=== PATIENT | male | born 1980 | race Caucasian/White ===

== ENCOUNTER 2024-05-07 09:27 | Outpatient (CLI) | payer OTHER, SELFPAY | END 2024-05-07 09:28 | disposition home or self-care (01) | LOC: FRMREF 09:28 | PROVIDERS: PCP Family Medicine; Visit Provider Nurse Practitioner Family | DX: Z13.6 Encounter for screening for cardiovascular disorders (principal) | CPT/HCPCS: 80061 ==

== ENCOUNTER 2024-05-11 16:28 | Outpatient (CLI) | payer OTHER, SELFPAY ==
--- NOTE | 2024-05-11 16:45 | CRLHL7_ITS ---
For Patients: As a result of the Century Cures Act, medical imaging exams and procedure reports are released immediately into your electronic medical record. You may view this report before your referring provider. If you have questions, please contact your health care provider. INDICATION: Cough TECHNIQUE: Volumetric helical scanning of the thorax was performed without IV contrast material. Coronal and sagittal reconstructions were obtained. COMPARISON: None FINDINGS: The lungs are clear. There is no significant airway abnormality. No pleural effusion is demonstrated. There is no mediastinal or hilar lymphadenopathy. The heart size is normal. Images of the upper abdomen are unremarkable. IMPRESSION: Negative chest CT Please note that all CT scans at this facility use dose modulation, iterative reconstruction, and/or weight-based dosing when appropriate to reduce radiation dose to as low as reasonably achievable. Dictated by Dominik Littlejohn MD @ 05/12/2024 5:49:57 AM (Electronically Signed)
== END 2024-05-11 16:29 | disposition home or self-care (01) ==
PROVIDERS: PCP Family Medicine; Visit Provider Nurse Practitioner Family
DX: R05.9 Cough, unspecified (principal)
CPT/HCPCS: 71250

== ENCOUNTER 2024-07-25 20:16 | Emergency (ER) | payer OTHER, SELFPAY ==
--- OUTSIDE RECORDS SUMMARY | 2024-07-25 20:18 | XMS_ITS | Clinical Summary ---
Author Organization [facility] Address [address] [place] [address] Care Team Providers Care Fuse Assembler Name Role Phone Pcp, No Primary Care Provider Unavailabl e Allergies No known active allergies Medications No known medications Active Problems Problem Noted Date Diagnosed Date ANKLE SPRAIN 04/01/2005 ACUTE SUPPURATIVE OTITIS MEDIA 07/07/2000 Immunizations Immunization Administration Dates Next Due Td (Age >=7 Years) 08/27/1997 Family History Medical History Relation Name Comments Genetic Other uncontributory Relation Name Status Comments Other Social History Tobacco Use Types Packs/Day Years Used Date Smoking Tobacco: Former Smokeless Tobacco: Never Tobacco Cessation:Counseling Given: No Comments:quit 3-4 years ago Alcohol Use Standard Drinks/Week Comments Yes 0 (1 standard drink = 0.6 oz pur e alcohol) occ weekends Sex and Gender Information Value Date Recorded Sex Assigned at Not on file 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 Gender Identity Not on file Sexual Orientation Not on file Obstetrics History Last Filed Vital Signs Vital Sign Reading Time Taken Comments Blood Pressure 120/73 01/02/2013 2:18 PM CDT Pulse 71 01/02/2013 2:18 PM CDT Temperature 36.7 C (98.1 F) 01/02/2013 2:18 PM CDT Respiratory Rate - - Oxygen Saturation 99% 01/02/2013 2:18 PM CDT Inhaled Oxygen Concentration - - Weight 95.3 kg (210 lb 3.2 oz) 01/02/2013 2:18 P M CDT Height 188.5 cm (6' 2.21) 01/02/2013 2:18 PM CD T Body Mass Index 26.83 01/02/2013 2:18 PM CDT Plan of Treatment Health Maintenance Due Date Last Done Comments Tdap 1989 Depression screening for age 12+ 1990 HIV for age 15-65 1993 BMI (ht and wt on same day) for age 18+ 1996 Hepatitis C screening for ag e 18-79 1996 Tetanus booster 08/28/2007 08/27/1997 Colonoscopy through age 75 09/03/2023 Lipids for age 45-75 09/03/2023 06/22/2003, 06/22/2003 COVID-19 vaccine series (2023- season) 2023 Influenza Vaccine (Season Ended) 2024 Pneumococcal series for age 6-49 Aged Out No longer eligible b ased on patient's age to complete this topic Procedures Procedure Name Priority Date/Time Associated Diagnosis Comments CHOLESTEROL,TOTAL Routine 06/22/2003 3:4 8 PM DREDGE PIPE INSTALLER from Last 3 Months or Most Recently Relevant to Health Maintenance Results * CHOLESTEROL,TOTAL (06/22/2003 3:48 PM DREDGE PIPE INSTALLER) CHOLESTEROL,TOT AL 134 110 - 199 mg/dL 06/22/2003 3:48 PM DREDGE PIPE INSTALLER Narrative 10/02/2003 4:43 AM CDT Ordered by an unspecified provider. us Other Clinical Staff CHEMISTRY Final Resul t from Last 3 Months or Most Recently Relevant to Health Maintenance Insurance [employer] [id number] WORKERS [employer] * Guarantor: [employer] Account Type Relation to Patient Date of Phone Billing Address [facility] [phone] (Home) [phone] (Work) [facility] [id number] [place] [address] Care Teams Fuse Assembler Relationship Specialty Start Date End Date Pcp, No . PCP - General 10/28/11
[2024-07-25 20:19] VITALS: BP 137/95; PULSE 78; RESP 20; TEMP 36.4; O2SAT 99; BMI 29.7
--- NOTE | 2024-07-25 20:39 | CRLHL7_ITS ---
For Patients: As a result of the Century Cures Act, medical imaging exams and procedure reports are released immediately into your electronic medical record. You may view this report before your referring provider. If you have questions, please contact your health care provider. INDICATION: Right-sided abdominal pain. TECHNIQUE: CT abdomen and pelvis without contrast. COMPARISON: None. FINDINGS: Lower chest: Unremarkable. Liver: Normal in size and attenuation. Gallbladder and bile ducts: No stones or inflammation. No biliary ductal dilatation. Spleen: Normal in size. Adrenal glands: Normal in size. No nodules. Pancreas: No inflammation. Kidneys: 2.5 mm calculus near the right ureterovesical junction. Mild right hydroureteronephrosis. No stones or hydronephrosis in the left kidney. GI tract: Normal in caliber. No evidence of obstruction. Status post appendectomy. Lymph nodes: No lymphadenopathy. Vasculature: Abdominal aorta is normal in caliber. Abdominal wall/Omentum/Peritoneum: Tiny fat containing umbilical hernia. No free air or significant free fluid. Pelvis: Unremarkable. Bones: Unremarkable for age. IMPRESSION: 2.5 mm right ureterovesical junction calculus with mild upstream hydroureteronephrosis. Please note that all CT scans at this facility use dose modulation, iterative reconstruction, and/or weight-based dosing when appropriate to reduce radiation dose to as low as reasonably achievable. Dictated by Enzo Bowers MD @ 07/25/2024 9:09:14 PM (Electronically Signed)
--- OUTSIDE RECORDS SUMMARY | 2024-07-25 20:43 | XMS_ITS | Clinical Summary ---
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 us Other Clinical Staff CHEMISTRY Final Resul t from Last 3 Months or Most Recently Relevant to Health Maintenance Insurance [employer] [id number] [employer] * Guarantor: [employer] Account Type Relation to Patient Date of Phone Billing Address [facility] [place] [phone] (Home) [phone] (Work) [facility] [id number] [place] [address] Care Teams Jewel Diameter Gauger Relationship Specialty Start Date End Date Pcp, No . PCP - General 10/28/11
[2024-07-25] MEDS: HYDROmorphone 0.5 mg/0.5 ml inj IVP ×2 (20:51→22:33)
[2024-07-25] MEDS: ONDANSETRON 2 MG/ML inj 4 MG IVP (20:52)
[2024-07-25] MEDS: 0.9 % SODIUM CHLORIDE 1000 ml 1,000 ML IV (20:52)
[2024-07-25] MEDS: KETOROLAC 30 MG/ML inj IVP (20:52)
[2024-07-25 21:16] LABS: Chloride* 104 mmol/L (96-114); Potassium* 3.3 mmol/L (3.6-5.1); Sodium* 139 mmol/L (135-149)
[2024-07-25 21:17] LABS: Basophils Absolute Auto 0.04 K/uL (0.00-0.30); Basophils Percent Auto 0.7 % (0.0-3.0); Eosinophils Absolute Auto 0.06 K/uL (0.00-0.50); Hematocrit 39.5 % (37.0-53.0); Hemoglobin* 14.5 gm/dL (13.5-17.5); Immature Granulocytes Abs Auto 0.03 K/uL (0.00-0.30); Immature Granulocytes Pct Auto 0.5 %; Lymphocytes Absolute Auto 1.99 K/uL (0.90-2.90); Lymphocytes Percent Auto 34.5 % (20-44); Mean Corpuscular HGB Conc 37 gm/dL (32-36); Mean Corpuscular Hemoglobin 31 pg (26-34); Mean Corpuscular Volume 85 fL (80-100); Monocytes Percent Auto 7.8 % (0.0-11.0); Neutrophils Absolute Auto 3.19 K/uL (1.7-7.0); Neutrophils Percent Auto 55.5 % (42.0-72.0); Platelet Count* 259 K/uL (140-440); RDW Coefficient of Variation % 11.5 % (11.5-15.5); Red Blood Count 4.63 m/uL (4.30-5.90); Slide Review Reflex No; White Blood Count* 5.76 K/uL (4.50-11.00)
[2024-07-25 21:20] LABS: Anion Gap 12 mEq/L (7-15); Blood Urea Nitrogen* 26 mg/dL (5-24); Calcium* 9.3 mg/dL (8.4-10.6); Carbon Dioxide* 23 mmol/L (20-32); Creatinine* 1.1 mg/dL (0.5-1.5); Est. Creatinine Clearance* 95.84; Estimated Glomerular Filt Rate 84 ml/min; Glucose* 107 mg/dL (60-115)
[2024-07-25 21:23] LABS: C Reactive Protein* < 0.5 mg/dL (0.5-1.0)
[2024-07-25 21:47] LABS: Appearance Urine Clear (Clear); Bilirubin Urine Negative (Negative); Blood Urine Negative (Negative); Color Urine Yellow (Yellow); Glucose Urine Negative (Negative); Ketones Urine Negative (Negative); Leukocyte Esterase Urine Negative (Negative); Nitrite Urine Negative (Negative); Protein Urine Negative (Negative); Specific Gravity Urine 1.025 (1.000-1.030); Urobilinogen Urine 0.2 (0.2-1.0); pH Urine 5.5 (5.0-8.5)
[2024-07-25 21:56] LABS: RBC Urine 0-2 (0-2); WBC Urine 0-2 (0-5)
--- NOTE | 2024-07-25 22:39 | ED.ABDPAIN ---
HPI - Abdominal Pain General Date Seen: 07/25/24 Chief Complaint: Flank Pain Stated Complaint: R side back pain Time Seen by Provider: 07/25/24 20:31 Source: patient and family Mode of arrival: ambulatory Limitations: no limitations History of Present Illness HPI narrative: Patient is a very nice gentleman who presents here with right flank pain this started at 7:30 a.m. alvino. He describes it as right-sided radiating down to his right testicle, he has never before had a history of this can a pain, but multiple family members have had a history kidney stones. He is also slightly nauseous, can not find comfort, he did not take any medications at home, got his to bring him in he denies chest pain shortness of breath dysuria frequency or other issues. No history of trauma, his no blood in his urine. MD elicited complaint: abdominal pain and flank pain Pertinent past history: none Related Data Previous Rx's ?Medication ?Instructions ?Recorded albuterol sulfate 90 mcg/actuation 2 puff inhalation Q6H PRN 04/27/24 aerosol inhaler shortness of breath or wheezing #6.7 grams Allergies Allergy/AdvReac Type Severity Reaction Status Date / Time No Known Drug Allergies Allergy Verified 05/07/24 09:07 Review of Systems Status of ROS Reports: 10 or more systems reviewed and unremarkable except as noted in History and below [facility] Medical History Pulmonary nodule ?R91.1 - Solitary pulmonary nodule (ICD-10) Exam Narrative: Exam Narrative: On examination he is in some mild distress doing the typical kidney stone dance in the room, moving around. Complaining pain in his right flank, pupils equal round reactive to light there is no scleral icterus redness is TMs are normal his oropharynx is normal there is no adenopathy anterior posterior chains his chest is good air entry bilateral with no wheezing crackles noted his heart sounds are normal no clicks murmurs or gallops his abdomen is soft, there is scaphoid there is no tenderness to palpation is testicles are both normal there is no masses in his groins noted. And no hernias. He moves all extremities independently and well. Skin reveals no petechiae rashes. Const: Vital Signs, click to edit/add: Vital Signs - 24 hr 07/25/24 20:19 Temperature 97.5 F L Pulse Rate [Left P ulse Oximeter] 78 Respiratory Rate 20 Blood Pressure [Ri ght Upper Arm] 137/95 H Pulse Oximetry 99 Oxygen Delivery Me thod Room Air Documenting provider has reviewed patient's vital signs: yes Course Vital Signs Vital signs: Initial Vital Signs Temperature 97.5 F L 07/25/24 20:19 Temperature Source Temporal Artery Scan 07/25/24 20:19 Pulse Rate 78 07/25/24 20:19 Pulse Rhythm Regular 07/25/24 20:19 Respiratory Rate 20 07/25/24 20:19 Blood Pressure 137/95 H 07/25/24 20:19 Blood Pressure Mean 109 H 07/25/24 20:19 Blood Pressure Position Sitting 07/25/24 20:19 Pulse Oximetry 99 07/25/24 20:19 Oxygen Delivery Method Room Air 07/25/24 20:19 Vital Signs Temperature 97.5 F L 07/25/24 20:19 Pulse Rate 78 07/25/24 20:19 Respiratory Rate 20 07/25/24 20:19 Blood Pressure 137/95 H 07/25/24 20:19 Pulse Oximetry 99 07/25/24 20:19 Oxygen Delivery Method Room Air 07/25/24 20:19 Temperature 97.5 F L 07/25/24 20:19 Pulse Rate 78 07/25/24 20:19 Respiratory Rate 20 07/25/24 20:19 Blood Pressure 137/95 H 07/25/24 20:19 Pulse Oximetry 99 07/25/24 20:19 Oxygen Delivery Method Room Air 07/25/24 20:19 Medications Administered Medications: Generic Name Dose Route Start Last Admin Trade Name Freq PRN Reason Stop Dose Admin Hydromorphone HCl 0.5 mg 07/25/24 22:28 07/25/24 22:33 Hydromorphone 0.5 Mg/0.5 Ml Inj IVP 07/25/24 22:29 0.5 mg ONCE ONE Administration Discontinued Medications Generic Name Dose Route Start Last Admin Trade Name Freq PRN Reason Stop Dose Admin Hydromorphone HCl 0.5 mg 07/25/24 20:38 07/25/24 20:51 Hydromorphone 0.5 Mg/0.5 Ml Inj IVP 07/25/24 20:39 0.5 mg ONCE ONE Administration Sodium Chloride 1,000 mls @ 1,000 mls/hr 07/25/24 20:45 07/25/24 21:50 0.9 % Sodium Chloride 1000 Ml IV 07/25/24 21:44 Infused .Q1H MADAN Infusion Ketorolac Tromethamine 30 mg 07/25/24 20:38 07/25/24 20:52 Ketorolac 30 Mg/Ml Inj IVP 07/25/24 20:39 30 mg ONCE ONE Administration Ondansetron HCl 4 mg 07/25/24 20:38 07/25/24 20:52 Ondansetron 2 Mg/Ml Inj IVP 07/25/24 20:39 4 mg ONCE ONE Administration MDM - Abdominal Pain MDM Narrative Medical decision making narrative: During this evaluation of this patient I considered multiple differential diagnosis is which included the life-threatening such as appendicitis, aortic aneurysm, mesenteric ischemia, bowel perforation, volvulus, and bowel obstruction. Other differential diagnosis is include but are not limited to cholecystitis, pancreatitis, hepatitis, gastritis, GERD, diverticulitis, peptic ulcer disease, pyelonephritis/UTI, renal colic/stone, testicular torsion as well as other acute scrotal processes, inflammatory bowel disease, as well as other etiologies Differential Diagnosis Differential diagnosis: Likely abdominal pain, acute appendicitis, calculus of kidney, constipation, diverticulitis, gastroenteritis, pancreatitis and small bowel obstruction Medical Records Attestation: I reviewed the patient's medical records. Lab Data Attestation: I reviewed the patient's lab results. Labs: Lab Results 07/25/24 07/25/24 Range/Units 20:20 21:30 WBC 5.76 (4.50-11.00) K/uL RBC 4.63 (4.30-5.90) m/uL Hgb 14.5 (13.5-17.5) gm/dL Hct 39.5 (37.0-53.0) % MCV 85 (80-100) fL MCH 31 (26-34) pg MCHC 37 H (32-36) gm/dL RDW Coeff of Korina 11.5 (11.5-15.5) % Plt Count 259 (140-440) K/uL Neut % (Auto) 55.5 (42.0-72.0) % Lymph % (Auto) 34.5 (20-44) % King[place]isher % (Auto) 7.8 (0.0-11.0) % Eos % (Auto) 1.0 (0.0-7.0) % Baso % (Auto) 0.7 (0.0-3.0) % Neut # (Auto) 3.19 (1.7-7.0) K/uL Lymph # (Auto) 1.99 (0.90-2.90) K/uL [place] # (Auto) 0.40 (0.00-0.90) K/UL Eos # (Auto) 0.06 (0.00-0.50) K/uL Baso # (Auto) 0.04 (0.00-0.30) K/uL Abs Immat Gran (auto) 0.03 (0.00-0.30) K/uL Imm/Tot Granulo (auto) 0.5 % Sodium 139 (135-149) mmol/L Potassium 3.3 L (3.6-5.1) mmol/L Chloride 104 (96-114) mmol/L Carbon Dioxide 23 (20-32) mmol/L Anion Gap 12 (7-15) mEq/L BUN 26 H (5-24) mg/dL Creatinine 1.1 (0.5-1.5) mg/dL Estimated Creat Clear 95.84 Estimated GFR 84 ml/min Glucose 107 (60-115) mg/dL Calcium 9.3 (8.4-10.6) mg/dL C-Reactive Protein < 0.5 L (0.5-1.0) mg/dL Urine Color Yellow (Yellow) Urine Appearance Clear (Clear) Urine pH 5.5 (5.0-8.5) Ur Specific [place] 1.025 (1.000-1.030) Urine Protein Negative (Negative) Urine Glucose (UA) Negative (Negative) Urine Ketones Negative (Negative) Urine Blood Negative (Negative) Urine Nitrite Negative (Negative) Urine Bilirubin Negative (Negative) Urine Urobilinogen 0.2 (0.2-1.0) Ur Leukocyte Esterase Negative (Negative) Urine RBC 0-2 (0-2) Urine WBC 0-2 (0-5) Ur Squamous Epith Cells None (None-Few) Urine Bacteria None (None) Imaging Data CT scan - abdomen: Attestation: I have reviewed the pertinent imaging results. My impression: Right-sided 2 mm urolithiasis right at the junction of the UVJ. With the [id number] hydronephrosis. Radiologist's impression: atient: Sai Ding MR#: [id number] : 1980 Acct:[id number] Loc: ED Service Date: 07/25/[address]: Ordering Physician: Ck Siegel M.D. Date of Service: 07/25/24 Procedure(s): CT abdomen pelvis wo con Accession Number(s): [id number] cc: Yasir Watson M.D.; Ck Siegel M.D.~ For Patients: As a result of the Century Cures Act, medical imaging exams and procedure reports are released immediately into your electronic medical record. You may view this report before your referring provider. If you have questions, please contact your health care provider. INDICATION: Right-sided abdominal pain. TECHNIQUE: CT abdomen and pelvis without contrast. COMPARISON: None. FINDINGS: Lower chest: Unremarkable. Liver: Normal in size and attenuation. Gallbladder and bile ducts: No stones or inflammation. No biliary ductal dilatation. Spleen: Normal in size. Adrenal glands: Normal in size. No nodules. Pancreas: No inflammation. Kidneys: 2.5 mm calculus near the right ureterovesical junction. Mild right hydroureteronephrosis. No stones or hydronephrosis in the left kidney. GI tract: Normal in caliber. No evidence of obstruction. Status post appendectomy. Lymph nodes: No lymphadenopathy. Vasculature: Abdominal aorta is normal in caliber. Abdominal wall/Omentum/Peritoneum: Tiny fat containing umbilical hernia. No free air or significant free fluid. Pelvis: Unremarkable. Bones: Unremarkable for age. IMPRESSION: 2.5 mm right ureterovesical junction calculus with mild upstream hydroureteronephrosis. Please note that all CT scans at this facility use dose modulation, iterative reconstruction, and/or weight-based dosing when appropriate to reduce radiation dose to as low as reasonably achievable. Dictated by Enzo Bowers MD @ 07/25/2024 9:09:14 PM (Electronically Signed) Discharge Plan Discharge Clinical Impression: Renal colic on right side Patient Disposition: Home w/ Parent or Adult Condition: Improved Instructions: Renal Colic (ED), Lithotripsy (DC) Additional Instructions: Home rest please fill your prescription for your narcotic medication, I recommend the use of ibuprofen 800 mg 3 times a day, lots of fluids, use of the Flomax is also helpful, once daily. Follow-up midweek with your primary care physician, for recheck. May need a urology referral if ongoing discomfort. Return back here if increasing fevers chills sweats in uncontrollable pain, or other issues Instymeds given for 10 tablets of percocet Activity Level: Light activity Discharge Diet: Regular Prescriptions: No Action albuterol sulfate 90 mcg/actuation HFA aerosol inhaler 2 puff inhalation Q6H PRN (Reason: shortness of breath or wheezing) Qty: 6.7 0RF Follow Up/Referrals: Yasir Watson MD [Primary Care Provider] - Stand Alone Forms: [employer] Info Instructions
== END 2024-07-25 22:49 | disposition home or self-care (01) ==
PROVIDERS: Emergency Provider Family Medicine; PCP Family Medicine
DX: N23 Unspecified renal colic (principal)
CPT/HCPCS: 36415; 74176; 80048; 81001; 85025; 86140; 96374; 96375; 99284; J1171; J1885; J2405; J7030